=== PATIENT | male | born 1995 | race Caucasian/White ===

== ENCOUNTER 2019-06-07 23:58 | Emergency (ER) | payer OTHER, SELFPAY ==
[2019-06-08 00:08] VITALS: BP 126/81; PULSE 76; RESP 14; TEMP 36.8; O2SAT 100; BMI 27.2
--- NOTE | 2019-06-08 00:17 | DI.US.S_ITS ---
PROCEDURE: US ABDOMEN LIMITED INDICATIONS: RUQ PAIN, EVAL FOR GB PATHOLOGY TECHNIQUE: Real-time focused scanning was performed of the right upper quadrant, with image documentation. COMPARISON: None. FINDINGS: The liver is normal in size without discrete mass lesion identified sonographically. The gallbladder is distended. The gallbladder wall is at the upper limits of normal measuring approximately 2 mm. No gallstones identified. No pericholecystic fluid. Patient was reportedly tender during evaluation. No intra-or extrahepatic biliary ductal dilatation. The visualized extrahepatic duct measures 3-4 mm. Visualized pancreas appears grossly unremarkable. The visualized right kidney demonstrates no hydronephrosis. No free fluid identified in the right upper quadrant. IMPRESSION: 1. Limited study demonstrates no cholelithiasis or definite evidence of cholecystitis. Concordant with preliminary interpretation. Dictated by: Dutch Acuna M.D. on 06/08/2019 at 7:24 Approved by: Dutch Acuna M.D. on 06/08/2019 at 7:28
--- NOTE | 2019-06-08 00:17 | ED.ABDPAIN ---
HPI - Abdominal Pain General Chief Complaint: Abdominal Pain Stated Complaint: mid back/abd pain x4 hours Time Seen by Provider: 06/08/19 00:00 Source: patient Mode of arrival: Ambulatory Limitations: no limitations History of Present Illness HPI narrative: 24-year-old male here for evaluation of right upper quadrant abdominal pain. States that it started several hours ago. Was a fairly sudden onset. It is worse with movement. Not worse with taking a deep breath. Is worse with palpation. No nausea vomiting. No urinary symptoms. No change in bowel habits. No skin changes. Has not anything for symptoms prior to arrival Related Data Home Medications Medication Instructions Recorded Confirmed No Known Home Medications 06/08/19 06/08/19 Allergies Allergy/AdvReac Type Severity Reaction Status Date / Time No Known Drug Allergies Allergy Verified 06/08/19 00:13 Review of Systems Constitutional Constitutional: Denies fever(s) ENT Ears, Nose, Mouth, and Throat: Denies vertigo and Denies disequilibrium Cardiovascular Cardiovascular: Denies chest pain and Denies dyspnea Respiratory Respiratory: Denies dyspnea Gastrointestinal Gastrointestinal: Reports abdominal pain, Denies change in stool character, Denies diarrhea, Denies nausea and Denies vomiting Genitourinary Genitourinary: Denies dysuria Musculoskeletal Musculoskeletal: Denies myalgias and Denies arthralgias Integumentary/Breasts Skin/Breast: Denies rash Neurologic Neurologic: Denies confusion, Denies vertigo and Denies disequilibrium Psychiatric Psychiatric: Denies confusion Hematologic/Lymphatic Hematologic/Lymphatic: Denies easy bleeding and Denies easy bruising [facility] Medical History Patient denies medical problems (Acute) Social History Smoking Status: Never smoker Social History Smoking Status: Never smoker Exam Initial Vital Signs Initial Vital Signs: Vital Signs Temperature 98.2 F 06/08/19 00:08 Pulse Rate 76 06/08/19 00:08 Respiratory Rate 14 06/08/19 00:08 Blood Pressure 126/81 06/08/19 00:08 Pulse Oximetry 100 06/08/19 00:08 Const General: cooperative, healthy appearing, comfortable, well developed, well groomed and No acute distress Orientation: alert, awake and oriented x3 HENMT Head: normal to inspection and normocephalic Resp Effort & Inspection: normal respiratory effort Auscultation: clear to auscultation bilaterally Cardio Rate: regular rate Rhythm: regular rhythm Pulses: radial pulses present GI Inspection: non-distended Palpation: soft, No firm, No guarding and tender (Right upper quadrant) Back/Spine/Pelvis Back: CVA tenderness right Skin Lesions: no lesions Rashes: no rashes Neuro General: alert and awake Cognition: normal cognition Speech: speech normal Extrem General: normal to inspection and capillary refill normal Course Orders Ordered: ED Orders 06/08/19 00:15 Complete Blood Count AUTO DIFF Stat Comprehensive Metabolic Panel Stat Lipase Stat Partial Thromboplastin Time Stat Prothrombin Time INR Stat 06/08/19 00:17 US abdomen limited Stat 06/08/19 01:15 Urine Microscopic Stat Vital Signs Vital signs: Vital Signs - 8 hr 06/08/19 00:08 06/08/19 02:12 Temperature 98.2 F Pulse Rate 76 76 Respiratory Rate 14 18 Blood Pressure 126/81 124/88 Pulse Oximetry 100 100 MDM - Abdominal Pain Lab Data Attestation: I reviewed the patient's lab results. Result diagrams: 06/08/19 00:15 06/08/19 00:15 Labs: Lab Results 06/08/19 06/08/19 06/08/19 Range/Units 00:15 00:15 00:15 WBC 7.2 (4.5-11.0) X10^3/uL RBC 4.92 (4.5-5.9) X10^6/uL Hgb 14.8 (13.5-17.5) g/dL Hct 42.0 (41-53) % MCV 85.4 (80-100) fL MCH 30.0 (26-34) PG MCHC 35.1 (30-36) % RDW 12.9 (11.6-14.8) % Plt Count 235 (150-400) X10^3/uL Neut % (Auto) 51.6 (50-75) % Lymph % (Auto) 38.1 (25-40) % [place] % (Auto) 8.5 (3-14) % Eos % (Auto) 1.1 L (2-4) % Baso % (Auto) 0.7 (0-2) % Neut # (Auto) 3700 (8368-2701) /uL Lymph # (Auto) 2700 (7347-4943) /uL [place] # (Auto) 600 (0-900) /uL Eos # (Auto) 100 (0-450) /uL Baso # (Auto) 100 (0-100) /uL PT 11.8 (10.1-12.7) SECONDS INR 1.0 (0.9-1.3) APTT 39 H (26.4-36.2) SECONDS Sodium 138 (137-145) mmol/L Potassium 3.5 (3.4-5.1) mmol/L Chloride 102 (98-107) mmol/L Carbon Dioxide 26 (22-32) mmol/L BUN 21 H (9-20) mg/dL Creatinine 1.10 (0.66-1.25) mg/dL Estimated GFR > 60.0 (>60) mL/min BUN/Creatinine Ratio 19.1 (6-22) Glucose 121 H (70-100) mg/dL Calcium 9.4 (8.4-10.2) mg/dL Total Bilirubin 1.6 H (0.2-1.3) mg/dL AST 28 (17-59) IU/L ALT 43 (21-72) IU/L Alkaline Phosphatase 55 (38-126) U/L Total Protein 7.3 (6.3-8.2) g/dL Albumin 4.4 (3.5-5.0) g/dL Globulin 2.9 (1.7-4.1) g/dL Albumin/Globulin Ratio 1.5 (1.0-2.8) Lipase 112 (23-300) U/L Urine RBC (0-5/HPF) Urine WBC (0-5/HPF) Urine Bacteria (None) Ur Culture Indicated? 06/08/19 Range/Units 01:15 WBC (4.5-11.0) X10^3/uL RBC (4.5-5.9) X10^6/uL Hgb (13.5-17.5) g/dL Hct (41-53) % MCV (80-100) fL MCH (26-34) PG MCHC (30-36) % RDW (11.6-14.8) % Plt Count (150-400) X10^3/uL Neut % (Auto) (50-75) % Lymph % (Auto) (25-40) % [place] % (Auto) (3-14) % Eos % (Auto) (2-4) % Baso % (Auto) (0-2) % Neut # (Auto) (1228-9407) /uL Lymph # (Auto) (9670-9814) /uL [place] # (Auto) (0-900) /uL Eos # (Auto) (0-450) /uL Baso # (Auto) (0-100) /uL PT (10.1-12.7) SECONDS INR (0.9-1.3) APTT (26.4-36.2) SECONDS Sodium (137-145) mmol/L Potassium (3.4-5.1) mmol/L Chloride (98-107) mmol/L Carbon Dioxide (22-32) mmol/L BUN (9-20) mg/dL Creatinine (0.66-1.25) mg/dL Estimated GFR (>60) mL/min BUN/Creatinine Ratio (6-22) Glucose (70-100) mg/dL Calcium (8.4-10.2) mg/dL Total Bilirubin (0.2-1.3) mg/dL AST (17-59) IU/L ALT (21-72) IU/L Alkaline Phosphatase (38-126) U/L Total Protein (6.3-8.2) g/dL Albumin (3.5-5.0) g/dL Globulin (1.7-4.1) g/dL Albumin/Globulin Ratio (1.0-2.8) Lipase (23-300) U/L Urine RBC 0-1/hpf (0-5/HPF) Urine WBC 0-1/hpf (0-5/HPF) Urine Bacteria None seen (None) Ur Culture Indicated? Cult not indicated Point of care testing: Urine Dip Bedside Urine Glucose Negative Bedside Urine Bilirubin + 1 Bedside Urine Ketone - Negative Urine Specific [place] 1.025 Bedside Urine Occult Blood - Negative Bedside Urine pH 6.0 Bedside Urine Protein +/- 15 Bedside Urine Urobilinogen 1+ 2mg Bedside Urine Nitrite - Negative Bedside Urine Leukocytes +/- 15 Esterase Imaging Data US - abdomen: Radiologist's impression: Normal ultrasound MDM Narrative Medical decision making narrative: Patient does have right upper quadrant abdominal pain however this is a fairly benign exam. His ultrasound is unremarkable. His urine is unremarkable. LFTs and lipase are unremarkable. He has no other associated symptoms except for the abdominal pain. I feel that is warranted to hold on any further workup for now. We will hold on a CT scan. We discussed return precautions and follow-up instructions with the patient. He expressed understanding and agreement with holding on further workup. Discharge Plan Departure Patient Disposition: Home Clinical Impression: Abdominal pain Qualifiers: Abdominal location: right upper quadrant Qualified Code(s): R10.11 - Right upper quadrant pain Discharge Date/Time: 06/08/19 02:15 Instructions: Acute Abdominal Pain Activity Restrictions/Additional Instructions: You have no restrictions on your diet or your activity. If your symptoms change in the next 12-24 hours were if your symptoms move or you start having fevers or vomiting please return to the emergency department for further evaluation. Prescriptions: No Action No Known Home Medications RF: 0 Referrals: Zack Urbina [Primary Care Provider] -
[2019-06-08 00:23] LABS: Add Manual Diff / Slide Review NO; Basophils Absolute Auto 100 /uL (0-100); Basophils Percent Auto 0.7 % (0-2); Eosinophils Absolute Auto 100 /uL (0-450); Eosinophils Percent Auto 1.1 % (2-4); Hemoglobin 14.8 g/dL (13.5-17.5); Lymphocytes Absolute Auto 2700 /uL (1100-4500); Lymphocytes Percent Auto 38.1 % (25-40); Mean Corpuscular HGB Conc 35.1 % (30-36); Mean Corpuscular Volume 85.4 fL (80-100); Monocytes Absolute Auto 600 /uL (0-900); Monocytes Percent Auto 8.5 % (3-14); Neutrophils Absolute Auto 3700 /uL (1500-7000); Neutrophils Percent Auto 51.6 % (50-75); Platelet Count 235 X10^3/uL (150-400); Red Blood Cell Count 4.92 X10^6/uL (4.5-5.9); Red Cell Distribution Width 12.9 % (11.6-14.8); White Blood Cell Count 7.2 X10^3/uL (4.5-11.0)
[2019-06-08 00:27] LABS: Prothrombin Time 11.8 SECONDS (10.1-12.7)
[2019-06-08 00:30] LABS: PTT Partial Thromboplastin Tim 39 SECONDS (26.4-36.2)
[2019-06-08 00:32] LABS: Alanine Aminotransferase 43 IU/L (21-72); Albumin 4.4 g/dL (3.5-5.0); Albumin Globulin Ratio 1.5 (1.0-2.8); Alkaline Phosphatase 55 U/L (38-126); Aspartate Aminotransferase 28 IU/L (17-59); BUN Creatinine Ratio 19.1 (6-22); Bilirubin Total 1.6 mg/dL (0.2-1.3); Blood Urea Nitrogen 21 mg/dL (9-20); Calcium 9.4 mg/dL (8.4-10.2); Carbon Dioxide 26 mmol/L (22-32); Chloride 102 mmol/L (98-107); Estimated Glomerular Filt Rate > 60.0 mL/min (>60); Globulin 2.9 g/dL (1.7-4.1); Glucose 121 mg/dL (70-100); HEMOLYSIS < 15 (0-50); Lipase 112 U/L (23-300); Potassium 3.5 mmol/L (3.4-5.1); Sodium 138 mmol/L (137-145); Total Protein 7.3 g/dL (6.3-8.2)
[2019-06-08 01:42] LABS: Bacteria Urine None Seen
[2019-06-08 01:50] LABS: Culture Indicated Urine Cult Not Indicated; RBC Urine 0-1/HPF (0-5/HPF); WBC Urine 0-1/HPF (0-5/HPF)
[2019-06-08 02:12] VITALS: BP 124/88; PULSE 76; RESP 18; O2SAT 100
== END 2019-06-08 02:15 | disposition home or self-care (01) ==
PROVIDERS: Emergency Provider Emergency Medicine; PCP General Practice
DX: R10.11 Right upper quadrant pain (principal)
CPT/HCPCS: 36591; 76705; 80053; 81003; 81015; 83690; 85025; 85610; 85730; 99282; 99284